=== PATIENT | male | born 1965 | race Caucasian/White ===

== ENCOUNTER 2016-11-04 19:58 | Inpatient (IN) | payer MEDICAID ==
[~2016-11-04] VITALS: Ht 180.3 cm; Wt 69.2 kg
[~2016-11-04 19:58] MED LIST: CHANTIX1 M1 PO; PRILOSEC40 M1 PO; ZANTAC 150150 MG PO
[2016-11-04] MEDS ORDERED: CHLORDIAZEPOXID25 MG PO (20:09)
[2016-11-04 20:12] VITALS: BP 111/86
[2016-11-04 21:10] VITALS: BP 118/78
[2016-11-04 21:16] LABS: BILIRUBIN NEGATIVE (NEGATIVE); BLOOD NEGATIVE (NEGATIVE); CLARITY CLEAR (CLEAR); COLOR YELLOW (YELLOW); GLUCOSE NEGATIVE (NEGATIVE); KETONE NEGATIVE (NEGATIVE); LEUKO ESTERASE NEGATIVE (NEGATIVE); NITRITE NEGATIVE (NEGATIVE); PROTEIN NEGATIVE (NEGATIVE); SPECIFIC GRAVITY <= 1.005 (1.005-1.030); UROBILINOGEN 0.2 E.U./dl (0.2-1.0)
[2016-11-04 21:20] LABS: HEMATOCRIT 41.6 % (42.0-52.0); HEMOGLOBIN 14.1 g/dl (14.0-18.0); MEAN CELL VOLUME 100.5 fl (80.0-94.0); MEAN CORPUSCULAR HGB 34.1 pg (27.0-31.0); MEAN CORPUSCULAR HGB CONC 33.9 g/dl (33.0-37.0); MEAN PLATELET VOLUME 10.1 fl (9.6-12.3); PLATELET COUNT AUTOMATED 178 10*3/uL (130-400); RED BLOOD COUNT 4.14 10*6/uL (4.50-5.90); RED CELL DISTRI WIDTH 13.5 % (0-14.5); WHITE BLOOD COUNT 5.8 10*3/uL (4.8-10.8)
[2016-11-04 21:24] LABS: URINE REFLEX COMMENT NO (NO); WBC 0-2 wbc/hpf (0-5)
[2016-11-04 21:26] LABS: URINE AMPHETAMINES < 1000 (1000ng/ml); URINE BARBITURATES < 200 (200ng/ml); URINE COCAINE < 300 (300ng/ml)
[2016-11-04 21:31] LABS: INTERNATIONAL NORM RATIO 0.9 (2.0-3.5); PROTHROMBIN TIME 9.8 SECONDS (9.0-12.4)
[2016-11-04 21:36] LABS: ALKALINE PHOSPHATASE 58 U/L (45-117); BILIRUBIN, TOTAL 0.2 mg/dl (0.2-1.0); BUN 6 mg/dl (7-24); CARBON DIOXIDE 24 mmol/L (21-32); CHLORIDE 105 mmol/L (98-107); EST GLOM FILT AFRICAN AMERICAN > 60 ml/min; GLUCOSE 77 mg/dL (65-99); PHOSPHOROUS 3.5 mg/dL (2.5-4.9); SGOT/AST 53 IU/L (3-35); SGPT/ALT 72 U/L (12-78); SODIUM 139 mmol/L (136-145); TOTAL PROTEIN 7.7 gm/dL (6.4-8.2)
[2016-11-04 21:37] LABS: TROPONIN I < 0.015 ng/ml (<0.045)
[2016-11-04 21:42] LABS: BASOPHIL # 0.1 10*3/uL (0-0.1); BASOPHILS 1 % (0-1); EOSINOPHIL # 0.2 10*3/uL (0-0.4); EOSINOPHILS 3 % (1-4); LYMPHOCYTE # 1.6 10*3/uL (1.3-4.4); MONOCYTE # 0.6 10*3/uL (0.1-1.0); NEUTROPHIL # 3.4 10*3/uL (2.3-7.9); NEUTROPHILS 58 % (47-73); TOTAL CELLS COUNTED 100 #CELLS
[2016-11-04 21:43] LABS: PLATELET SUFFICIENCY NORMAL (NORMAL)
[2016-11-04 22:10] VITALS: BP 118/88
[2016-11-04 23:14] VITALS: BP 126/90
[2016-11-05 00:15] VITALS: BP 131/93
[2016-11-05 04:00] VITALS: BP 111/77
[2016-11-05 05:53] LABS: ALBUMIN 3.3 gm/dl (3.1-4.5); ALKALINE PHOSPHATASE 53 U/L (45-117); BILIRUBIN, TOTAL 0.4 mg/dl (0.2-1.0); BUN 9 mg/dl (7-24); CARBON DIOXIDE 30 mmol/L (21-32); CHLORIDE 108 mmol/L (98-107); CHOLESTEROL 154 mg/dL (<200); EST GLOM FILT AFRICAN AMERICAN > 60 ml/min; FREE T4 0.89 ng/dl (0.76-1.46); GLUCOSE 97 mg/dL (65-99); HDL CHOLESTEROL 43 mg/dl (40-60); LDL CHOLESTEROL 54 mg/dL (9-159); POTASSIUM 3.8 mmol/L (3.5-5.1); SGOT/AST 48 IU/L (3-35); SGPT/ALT 67 U/L (12-78); SODIUM 142 mmol/L (136-145); TOTAL PROTEIN 6.6 gm/dL (6.4-8.2); TRIGLYCERIDES 285 mg/dl (<150); VLDL CHOLESTEROL 57 mg/dL (6-40)
[2016-11-05 05:57] LABS: BASO # 0.1 10*3/uL (0.0-0.1); BASO % 1.3 % (0.0-1.0); EOS # 0.2 10*3/uL (0.0-0.4); EOS % 4.4 % (1.0-4.0); HEMATOCRIT 40.8 % (42.0-52.0); HEMOGLOBIN 13.9 g/dl (14.0-18.0); LYMPH # 1.5 10*3/uL (1.3-4.4); LYMPH % 27.9 % (27.0-41.0); MEAN CELL VOLUME 101.7 fl (80.0-94.0); MEAN CORPUSCULAR HGB 34.7 pg (27.0-31.0); MEAN CORPUSCULAR HGB CONC 34.1 g/dl (33.0-37.0); MEAN PLATELET VOLUME 10.8 fl (9.6-12.3); MONO # 0.8 10*3/uL (0.1-1.0); NEUT # 2.8 10*3/uL (2.3-7.9); PLATELET COUNT AUTOMATED 186 10*3/uL (130-400); RED BLOOD COUNT 4.01 10*6/uL (4.50-5.90); RED CELL DISTRI WIDTH 13.6 % (0-14.5); WHITE BLOOD COUNT 5.4 10*3/uL (4.8-10.8)
[2016-11-05 06:23] LABS: INTERNATIONAL NORM RATIO 0.9 (2.0-3.5); PROTHROMBIN TIME 9.7 SECONDS (9.0-12.4)
[2016-11-05 06:27] LABS: HEMOGLOBIN A1c 5.3 % (4.8-5.6)
[2016-11-05 08:00] VITALS: BP 114/82
[2016-11-05] MEDS ORDERED: ATARAX,VISTARIL50 MG PO (11:02)
[2016-11-05] MEDS ORDERED: PANTOPRAZOLE SO40 MG PO (11:02)
[2016-11-05] MEDS ORDERED: ONDANSETRON4 MG/2 M3 IV (11:02)
[2016-11-05] MEDS ORDERED: ZOFRAN4 MG PO (13:45)
[2016-11-05 17:52] LABS: VITAMIN D, 25-HYDROXY 10.7 ng/mL (30-100)
[2016-11-05 17:54] LABS: FOLIC ACID > 24.00 ng/mL (>5.38)
== END 2016-11-05 12:01 | disposition home or self-care (01) | DRG 897 ==
LOC: ED 19:58 → ICCU 22:18 → EDHOLD 22:18 → 5E 22:52 → ICCU 22:59
PROVIDERS: Family Medicine
DX: F10.230 Alcohol dependence with withdrawal, uncomplicated (principal); D53.1 Other megaloblastic anemias, not elsewhere classified; F41.0 Panic disorder [episodic paroxysmal anxiety]; F10.229 Alcohol dependence with intoxication, unspecified; R74.0 Nonspecific elevation of levels of transaminase and lactic acid dehydrogenase [LDH]; E78.1 Pure hyperglyceridemia; F17.200 Nicotine dependence, unspecified, uncomplicated; I25.10 Atherosclerotic heart disease of native coronary artery without angina pectoris; Z98.61 Coronary angioplasty status; Z82.49 Family history of ischemic heart disease and other diseases of the circulatory system; Z83.3 Family history of diabetes mellitus; Z84.1 Family history of disorders of kidney and ureter; Z82.0 Family history of epilepsy and other diseases of the nervous system

== ENCOUNTER 2016-11-05 14:35 | Inpatient (IN) | payer MEDICAID ==
[~2016-11-05] VITALS: Ht 177.8 cm; Wt 72.6 kg
[~2016-11-05 14:35] MED LIST changes: +ATARAX,VISTARIL50 MG PO; +CHLORDIAZEPOXID25 MG PO; +ONDANSETRON4 MG/2 M3 IV; +PANTOPRAZOLE SO40 MG PO; +ZOFRAN4 MG PO
[2016-11-05 16:00] VITALS: BP 110/98
[2016-11-05 16:30] LABS: BASO # 0.1 10*3/uL (0.0-0.1); BASO % 0.9 % (0.0-1.0); EOS # 0.2 10*3/uL (0.0-0.4); EOS % 2.7 % (1.0-4.0); HEMATOCRIT 42.9 % (42.0-52.0); HEMOGLOBIN 14.2 g/dl (14.0-18.0); LYMPH # 1.1 10*3/uL (1.3-4.4); LYMPH % 17.6 % (27.0-41.0); MEAN CELL VOLUME 101.9 fl (80.0-94.0); MEAN CORPUSCULAR HGB 33.7 pg (27.0-31.0); MEAN CORPUSCULAR HGB CONC 33.1 g/dl (33.0-37.0); MEAN PLATELET VOLUME 10.5 fl (9.6-12.3); MONO # 0.7 10*3/uL (0.1-1.0); MONO % 11.6 % (3.0-9.0); NEUT # 4.2 10*3/uL (2.3-7.9); NEUT % 66.7 % (47.0-73.0); PLATELET COUNT AUTOMATED 198 10*3/uL (130-400); RED BLOOD COUNT 4.21 10*6/uL (4.50-5.90); RED CELL DISTRI WIDTH 13.7 % (0-14.5); WHITE BLOOD COUNT 6.4 10*3/uL (4.8-10.8)
[2016-11-05 16:39] LABS: INTERNATIONAL NORM RATIO 0.9 (2.0-3.5); PROTHROMBIN TIME 9.7 SECONDS (9.0-12.4)
[2016-11-05 16:45] LABS: ALBUMIN 3.7 gm/dl (3.1-4.5); ALKALINE PHOSPHATASE 58 U/L (45-117); BILIRUBIN, TOTAL 0.2 mg/dl (0.2-1.0); BUN 11 mg/dl (7-24); CARBON DIOXIDE 27 mmol/L (21-32); CHLORIDE 113 mmol/L (98-107); EST GLOM FILT AFRICAN AMERICAN > 60 ml/min; GLUCOSE 104 mg/dL (65-99); POTASSIUM 4.4 mmol/L (3.5-5.1); SGOT/AST 45 IU/L (3-35); SGPT/ALT 67 U/L (12-78); SODIUM 143 mmol/L (136-145); TOTAL PROTEIN 7.6 gm/dL (6.4-8.2)
[2016-11-05 19:16] LABS: BILIRUBIN NEGATIVE (NEGATIVE); BLOOD NEGATIVE (NEGATIVE); CLARITY CLEAR (CLEAR); COLOR YELLOW (YELLOW); GLUCOSE NEGATIVE (NEGATIVE); KETONE NEGATIVE (NEGATIVE); LEUKO ESTERASE NEGATIVE (NEGATIVE); NITRITE NEGATIVE (NEGATIVE); PH 5.5 (5.0-9.0); PROTEIN NEGATIVE (NEGATIVE); UROBILINOGEN 0.2 E.U./dl (0.2-1.0)
[2016-11-05 19:22] LABS: BACTERIA TRACE; EPITHELIAL CELLS 0-2; URINE REFLEX COMMENT NO (NO); WBC 0-2 wbc/hpf (0-5)
[2016-11-05 19:25] LABS: URINE AMPHETAMINES < 1000 (1000ng/ml); URINE BARBITURATES < 200 (200ng/ml); URINE COCAINE < 300 (300ng/ml)
[2016-11-05 20:00] VITALS: BP 116/82
[2016-11-06] VITALS: BP 110/79
[2016-11-06 04:00] VITALS: BP 134/91
[2016-11-06 08:00] VITALS: BP 123/90
[2016-11-06 12:00] VITALS: BP 109/71
[2016-11-06 16:00] VITALS: BP 108/67
[2016-11-06 20:00] VITALS: BP 103/67
[2016-11-07] VITALS: BP 113/74
[2016-11-07 08:00] VITALS: BP 117/84
[2016-11-07 12:00] VITALS: BP 115/81
[2016-11-07] MEDS ORDERED: NATURE'S BLEND100 M2 PO (13:58)
[2016-11-07] MEDS ORDERED: NATURE'S BLEND F1 MG PO (13:58)
[2016-11-07] MEDS ORDERED: KEFLEX 500 MG E2 CAP PO (13:58)
[2016-11-07] MEDS ORDERED: THERA1 EACH PO (13:58)
== END 2016-11-07 15:54 | disposition home or self-care (01) | DRG 897 ==
LOC: 5E 14:35
PROVIDERS: Internal Medicine; Student in an Organized Health Care Education/Training Program
DX: F10.230 Alcohol dependence with withdrawal, uncomplicated (principal); E87.8 Other disorders of electrolyte and fluid balance, not elsewhere classified; E78.2 Mixed hyperlipidemia; R74.0 Nonspecific elevation of levels of transaminase and lactic acid dehydrogenase [LDH]; R73.9 Hyperglycemia, unspecified; Z72.0 Tobacco use; Z81.8 Family history of other mental and behavioral disorders; Z84.1 Family history of disorders of kidney and ureter; Z83.3 Family history of diabetes mellitus; Z82.49 Family history of ischemic heart disease and other diseases of the circulatory system; Z79.899 Other long term (current) drug therapy; Z71.6 Tobacco abuse counseling